=== PATIENT | female | born 1955 | race Hispanic/Latino ===

== ENCOUNTER → 2025-01-13 | Outpatient (CLI) | payer OTHER ==
--- NOTE | 2025-01-14 08:51 | HMCIMG ---
EXAM: CT Cardiac calcium scoring. CLINICAL HISTORY: Screening. TECHNIQUE: Thin collimated axial CT cardiac images were obtained. A CT scan is done according to ALARA (As Low As Reasonably Achievable). CONTRAST: None. COMPARISON: None provided. FINDINGS: Calcium Score: VESSEL Number of lesions Volume mm3 Equi. Mass/mg Calcium score LM 0 0.0 - 0.0 LAD 0 0.0 - 0.0 LCX 0 0.0 - 0.0 RCA 2 10.0 - 14.5 Total 2 10.0 - 14.5 IMPRESSION: The total calcium score is 14.5. 50th percentile. /[place]
== END | disposition home or self-care (01) ==
LOC: RAH 14:58
PROVIDERS: ATTEND Internal Medicine Cardiovascular Disease
DX: Z13.6 Encounter for screening for cardiovascular disorders (principal)
CPT/HCPCS: 75571